=== PATIENT | male | born 1970 | race Hispanic/Latino ===

== ENCOUNTER 2018-07-27 13:02 | Emergency (ER) | payer OTHER ==
[~2018-07-27] VITALS: Ht 165.1 cm; Wt 70.0 kg
[2018-07-27] MEDS ORDERED: CLEOCIN150 MG PO (13:47)
[2018-07-27] MEDS ORDERED: NEOSPORIN3.5 G1 TOP (14:06)
[2018-07-27 14:07] VITALS: BP 132/77
== END 2018-07-27 14:09 | disposition home or self-care (01) | DRG 605 ==
LOC: ED 13:02
DX: S80.812A Abrasion, left lower leg, initial encounter (principal); L03.116 Cellulitis of left lower limb; R22.42 Localized swelling, mass and lump, left lower limb; W22.8XXA Striking against or struck by other objects, initial encounter; Y92.009 Unspecified place in unspecified non-institutional (private) residence as the place of occurrence of the external cause